=== PATIENT | male | born 1960 | race Caucasian/White ===

== ENCOUNTER 2016-09-02 14:10 | Emergency (ER) | payer OTHER ==
[~2016-09-02] VITALS: Ht 188 cm; Wt 90.0 kg
[~2016-09-02 14:10] MED LIST: NPR500T PO
[2016-09-02 14:26] VITALS: BP 120/84; PULSE 93; RESP 16; O2SAT 97
[2016-09-02] MEDS ORDERED: HYDR453.3 TP (14:28)
[2016-09-02] MEDS ORDERED: PRAZ1CAP2 PO (14:29)
--- NOTE | 2016-09-02 17:45 | ED.REPORT ---
HPI-Rash / Abscess Date of Service Sep 02, 2016 ED Provider: Dylan Oscar PA-C an otherwise healthy 56-year-old male presents to the chief complaint abscess on the back of his neck. He states it has been there for 3 days. He has a history of several abscesses which he typically treats on his own. Denies fever, chills, malaise, pelvic, vomiting, diabetes, HIV, immunosuppression. Nursing Notes Stated Complaint: NECK INFECTION Chief Complaint: Skin Rash/Abscess Nursing Notes Reviewed: Yes Allergies: Coded Allergies: No Known Allergies (Verified , 03/13/15) Uncoded Allergies: NKA (Allergy, Unknown, 12/15/03) NKDA (Allergy, Unknown, 12/15/03) No Known Allergies (Allergy, Unknown, 12/15/03) Scheduled Hydrocortisone (Hydrocortisone) 453.6 Gm Cream..g. 453.6 GM TP DAILY Prazosin (Prazosin) 1 Mg Capsule 1 MG PO HS General Time Seen by MD: 17:18 Chief Complaint Abscess Past Medical History Past Medical History Denies Past Surgical History Multiple foot surgeries Reports: Back/neck surgery Smoking History Unknown if Ever Smoker Review of Systems Negative unless stated otherwise in history of present illness Physical Exam General: Well appearing, well developed, well nourished, no acute distress. Head: Atraumatic, normocephalic. Neck: 3 cm mobile area of redness, swelling, tenderness and fluctuance on the posterior neck. Eyes: No scleral icterus or injection. No discharge. Vision grossly intact. ENT: Voice clear, hearing grossly intact. Respiratory: No respiratory distress, no increased work of breathing. Speaks in complete sentences. Skin: Warm and dry. Neurological: Grossly nonfocal. Psychological: alert and oriented. Speech appropriate, linear and logical. Behavior appropriate. Initial Vital Signs Vital Signs (First) Date Time Temp Pulse Resp B/P Pulse Ox O2 Delivery O2 Flow Rate FiO2 09/02/16 14:26 36.3 93 16 120/84 97 Room Air Initial VS: Reviewed, Vital signs normal Procedures Incision & Drainage Abscess Time: 17:49 Procedure Performed by: Allied health pract Consent / Setup / Site Prep: Informed consent provided, Consent from patient , Hand hygiene observed Skin Preparation Agent: Shurclens Local Anesthesia: Lidocaine w epi 1%, 2cc, 27g needle Pus Drained: Large, Purulent discharge Post-Procedure / Complications: Packing placed, Culture obtained, Gram stain ordered, Dressing applied, No complications, Condition improved, Tolerated procedure well, Patient stable Re-Eval/Medical Decision Med Decision/Clinical Course Otherwise healthy 56-year-old male with chief complaint of an abscess in the back of his neck. Denies history of diabetes, HIV, immunosuppression. No indication of systemic infection. I see no indication for antibiotics. Incision and drainage performed, significant amount of pus drained, epithelial capsule removed as much as possible. Sample taken for culture. Placed packing , dressed with a atraumatic ointment and gauze. Provided wound care instructions, primary care follow-up instructions, emergency return precautions. Patient understands and agrees with plan Discharge & Departure Impression: Primary Impression: Infected sebaceous cyst Disposition: Home Discharge Condition All VS Reviewed: Yes Condition: Stable Patient Instructions: Abscess Incision and Drainage (ED) Additional Instructions: Evaluation for an abscess in the emergency department. He could open and drainage infected sebaceous cyst on the back of your neck. I placed packing, applied antibiotic ointment and gauze dressing. I believe you are stable and safe to be discharged home. The pain is best treated with 400 mg of ibuprofen (Advil, Motrin) every 6 hours , or 1000 mg of acetaminophen (Tylenol) every 6 hours. These drugs can be taken at the same time for more severe pain. Keep the dressing clean and dry for the next 24 hours. After that he can wash with soap and water and replace the antibiotic ointment and gauze dressing. After 2-3 days, you can remove the packing material. Return to the emergency department or see your primary care provider in 3-4 days to be sure this is healing as expected. Return to emergency department at any time for new or worsening symptoms including increasing pain, redness, swelling, the appearance of pus or fever. Referrals: Cari Brandon MD (PCP) EDSupervising Provider for APC: Bubba Burton MD copies to: Cari Brandon MD, Seth PA-C Sep 02, 2016 17:45
== END 2016-09-02 17:53 | disposition home or self-care (01) ==
LOC: SED 14:10
DX: L72.3 Sebaceous cyst (principal); Z98.890 Other specified postprocedural states